=== PATIENT | female | born 1995 | race Caucasian/White ===

== ENCOUNTER 2021-10-27 08:03 | Emergency (ER) | payer MEDICARE, MEDICAID, SELFPAY ==
--- NOTE | ~2021-10-27 | XR_ITS ---
EXAMINATION: XR CHEST CLINICAL INFORMATION: Cough and shortness of breath COMPARISON: Previous chest x-ray September 2018 TECHNIQUE: Frontal view of the chest was obtained. FINDINGS: No significant abnormality is noted involving the heart, lungs, mediastinum, bony thorax or soft tissues. XR/XR chest 1V IMPRESSION: Unremarkable examination.
[2021-10-27 08:41] LABS: COVID-19 Test Negative (Negative)
[2021-10-27 08:42] LABS: IDNOW Serial# 9DB6401D; Influenza A Negative (Negative); Influenza B2 Negative (Negative)
[2021-10-27] MEDS: Albuterol/Iprat 2.5/0.5MG 3 ML AMPUL.NEB INHALE (09:55)
[2021-10-27 10:04] VITALS: PULSE 105; RESP 18; O2SAT 99
[2021-10-27] MEDS: predniSONE 20 MG TABLET 40 MG PO (10:18)
[2021-10-27] MEDS: Benzonatate 100 MG CAPSULE 200 MG PO (10:18)
[2021-10-27] MEDS: HYDROcodone/Homat 5/1.5/5 ML 5 ML SYRUP PO (10:19)
[2021-10-27 10:20] VITALS: BP 131/82; PULSE 105; RESP 18; TEMP 37.2; O2SAT 99; BMI 38.0
--- NOTE | 2021-10-27 10:50 | ED_ITS ---
HPI - URI/Sore Throat General Chief Complaint: Upper Respiratory Symptoms Stated Complaint: asthma Time Seen by Provider: 10/27/21 08:38 Source: patient Mode of arrival: ambulatory History of Present Illness HPI Narrative: 26-year-old female with a past medical history of asthma presenting to the ED complaining of asthma exacerbation, productive cough, SOB, body aches/myalgias x5 days. Denies fever, chills, ear pain, chest pain, recent travel, sick contacts MD elicited complaint: cough and sore throat Onset (ago): day(s) Related Data Previous Rx's Medication Instructions Recorded albuterol sulfate 2.5 mg/0.5 mL 5 mg INHALATION Q4H PRN #30 ea 10/27/21 solution for nebulization prednisone 20 mg tablet 40 mg PO DAILY 5 Days #10 tab 10/27/21 Allergies Allergy/AdvReac Type Severity Reaction Status Date / Time No Known Allergies Allergy Unverified 02/28/20 19:27 [No Known Allergies*] Review of Systems Review of Systems: Constitutional: No Fever, No Chills ENT/Mouth: No Ear Pain, + Nasal Congestion, No Sinus Pain, No Hoarseness, + sore throat, No Rhinorrhea, No Swallowing Difficulty Cardiovascular: No Chest Pain, + SOB Respiratory: + Cough, + Sputum, No Wheezing Gastrointestinal: No Nausea, No Vomiting,No Abdominal pain Genitourinary: No Dysuria, No Urinary Frequency, No Hematuria, No Flank Pain Musculoskeletal: No joint pain, + Myalgias, No Joint Swelling Skin: No Skin Lesions, No rash Neuro: No Weakness, No Numbness, No Paresthesias Yes all other systems are reviewed and are negative [facility] Past Medical History Attestation statement: The following information was validated with the patient. Social History Social History Advance Directives: No Advance Directives Information Provided: No Physical Exam Vital Signs: Vital Signs: Last Vital Signs Temp 98.9 F 10/27/21 10:20 Pulse 105 H 10/27/21 10:20 Resp 18 10/27/21 10:20 BP 131/82 10/27/21 10:20 Pulse Ox 99 10/27/21 10:20 BMI result Body Mass Index 38.0 Const: General: cooperative, healthy appearing and no acute distress Orientation/consciousness: patient oriented x3 Limitations: no limitations HEENT: Head: Yes normal to inspection and Yes atraumatic Ears: hearing grossly normal bilaterally General nose exam: Normal external nose present Face and sinus: Yes normal facial exam Mouth: Normal oral and palatal mucosa present Throat: Yes posterior oropharynx normal, Yes tonsils normal, Yes uvula midline, No peritonsillar mass and No uvular edema Eyes: General: appearance normal, both eyes and all related structures EOM: EOMs intact bilaterally Neck: Neck: Yes normal visual inspection, Yes no lymphadenopathy and Yes no meningeal signs Resp: Effort & Inspection: normal respiratory effort and no respiratory distress Auscultation: clear to auscultation bilaterally, no rales, no rhonchi and no wheezes Cardio: Rate: regular rate Heart sounds: S1 normal heart sound present and S2 normal heart sound present : General: Yes no CVA tenderness Back/Spine/Pelvis: Back: no CVA tenderness Skin: Rashes: no rashes Wounds: no wounds Neuro: General: patient oriented x3, tone normal and no meningeal signs Gait exam (Neuro): Normal gait present Extrem: General: Yes normal to inspection Course Course Course Narrative: -chest x-ray unremarkable. -COVID-19 negative. Influenza negative >> results discussed with patient and mother are area lungs CTA on re- evaluation. Discussed worrisome signs and symptoms and strict return precautions and need close follow-up with PCP. They verbalized understanding feel safe for discharge home. MDM - URI/Sore Throat MDM Narrative Medical decision making narrative: 26-year-old female with a past medical history of asthma presenting to the ED complaining of asthma exacerbation, productive cough, SOB, body aches/myalgias x5 days. On exam mildly tachycardic likely from active coughing during exam, lungs CTA, or pharynx WNL, nontoxic-appearing. Concern for viral illness vs asthma exacerbation vs bronchitis. Rule out pneumonia. Low concern for severe sepsis Plan: COVID-19/influenza testing, CXR, p.o. prednisone, DuoNeb Differential Diagnosis Differential diagnosis: Likely upper respiratory infection, sinusitis, viral infection, bronchitis, influenza and pharyngitis Medical Records Attestation: I reviewed the patient's medical records. Lab Data Attestation: I reviewed the patient's lab results. Labs: Lab Results 10/27/21 Range/Units 08:17 COVID-19 ([facility]) Negative (Negative) COVID-19 Clin Com See Note Discharge Plan Discharge Clinical Impression: Viral infection, Asthma Patient Disposition: Home, Self-Care Instructions: Asthma (DC), Viral Syndrome (ED) Additional Instructions: You tested negative for COVID-19 and the flu. Chest x-ray is unremarkable. Continue to use albuterol inhaler and neb machine. Prednisone is a steroid please take as prescribed If symptoms persist or worsen, you have constant worsening shortness of breath, fever please return to the ED Prescriptions: New albuterol sulfate 2.5 mg/0.5 mL solution for nebulization 5 mg inhalation Q4H PRN (Reason: shortness of breath or wheezing) Qty: 30 0RF prednisone 20 mg tablet 40 mg PO DAILY 5 Days Qty: 10 0RF Referrals: Physician,Unknown J [Primary Care Provider] - 3 days Stand Alone Forms: Work/School Release
== END 2021-10-27 11:12 | disposition home or self-care (01) ==
PROVIDERS: Emergency Provider Emergency Medicine
DX: B34.9 Viral infection, unspecified (principal); R05.9 Cough, unspecified; R06.02 Shortness of breath; M79.10 Myalgia, unspecified site; Z20.822 Contact with and (suspected) exposure to COVID-19; Z79.899 Other long term (current) drug therapy
CPT/HCPCS: 71045; 87502; 87635; 94640; 99283; 99284